=== PATIENT | female | born 1980 | race Caucasian/White ===

== ENCOUNTER 2021-02-12 13:56 | Emergency (ER) | payer OTHER ==
[~2021-02-12] VITALS: Ht 160 cm; Wt 92.3 kg
[2021-02-12 14:37] VITALS: TEMP 98.6
[2021-02-12] MEDS ORDERED: ZOFRAN ODT4 MG PO ×2 (16:25→17:15)
[2021-02-12] MEDS ORDERED: PERCOCET 325 MG1 TA2 PO ×2 (16:26→17:15)
[2021-02-12 16:49] VITALS: BP 131/91; PULSE 72
== END 2021-02-12 16:50 | disposition home or self-care (01) ==
LOC: COL.ER 13:56
DX: S52.571A Other intraarticular fracture of lower end of right radius, initial encounter for closed fracture (principal); S52.611A Displaced fracture of right ulna styloid process, initial encounter for closed fracture; F17.210 Nicotine dependence, cigarettes, uncomplicated; W00.0XXA Fall on same level due to ice and snow, initial encounter
CPT/HCPCS: J3010